=== PATIENT | male | born 1995 | race African-American/Black ===

== ENCOUNTER 2020-01-18 19:15 | Emergency (ER) | payer OTHER ==
[~2020-01-18] VITALS: Ht 172.7 cm; Wt 70.2 kg
[2020-01-18] MEDS ORDERED: cefTRIAXone SOD 250MG VIAL (J0696 PER 250MG) IM ONE (20:30)
[2020-01-18] MEDS ORDERED: LIDOCAINE 1% SDV 5ML VIAL DILUENT ONE (20:30)
[2020-01-18] MEDS ORDERED: AZITHROMYCIN 250MG TABLET PO ONE (20:30)
[2020-01-18 20:50] VITALS: BP 135/76
[2020-01-18 22:46] LABS: CHLAMYDIA DNA AMPLIFICATION POSITIVE (NEGATIVE); GC DNA AMPLIFICATION NEGATIVE (NEGATIVE)
== END 2020-01-18 20:51 | disposition home or self-care (01) ==
LOC: M ED 19:15
DX: Z11.3 Encounter for screening for infections with a predominantly sexual mode of transmission (principal); Z20.2 Contact with and (suspected) exposure to infections with a predominantly sexual mode of transmission
CPT/HCPCS: 87661; 96372; 99283; J0696